=== PATIENT | female | born 1995 | race American Indian/Alaskan Native ===

== ENCOUNTER 2017-11-02 09:51 | Emergency (ER) | payer SELFPAY ==
[2017-11-02 10:00] VITALS: BP 123/85
[2017-11-02 10:29] LABS: Bacteria,Urine 1+ /HPF (Negative); Bilirubin,Urine NEG (Negative); Blood,Urine SM (Negative); Ketones,Urine NEG (Negative); Leukocyte Esterase,Urine MOD (Negative); Mucus,Urine FEW /HPF; Nitrite,Urine NEG (Negative); Urobilinogen,Urine < 2.0 mg/dL (<2.0)
--- NOTE | 2017-11-02 11:33 | Emergency Department Report ---
Chief Complaint: Urogenital-Female Stated Complaint: PAINFUL URINATIONS Time Seen by Provider: 11/02/17 11:24 - HPI History of Present Illness: Patient is a 22-year-old Female who is presenting with dysuria for the past 2 weeks. Patient states that his been relatively minor however for most of the duration of the illness however has increased in severity. Patient denies any fever nausea vomiting diarrhea or vaginal bleeding or vaginal discharge at this time - Exam Vital Signs: Vital Signs 11/02/17 09:56 Temperature 98.5 F Pulse Rate 98 H Respiratory 20 Rate Blood Pressure 123/85 O2 Sat by Pulse 98 Oximetry MSE screening note: Focused history and physical exam performed. Due to findings the following was ordered: Urinalysis and tests have been ordered and will be followed up by Dr. Mrs. Vieira ED Disposition for MSE Condition: Stable Referrals: AYAH HEBERT MD [Primary Care Provider] - 3-5 Days
--- NOTE | 2017-11-02 11:42 | Emergency Department Report ---
HPI - General Chief Complaint: Urogenital-Female Time Seen by Provider: 11/02/17 11:24 - HPI HPI: This 22-year-old female previously screened by attending Dr. Giron, see HPI in MSE note. She has no other complaints ED Past Medical Hx - Past Medical History Previous Medical History?: Yes Hx Psychiatric Treatment: Yes (depression, suicidal thought) - Surgical History Past Surgical History?: Yes Additional Surgical History: Tonsillectomy - Social History Smoking Status: Never Smoker Substance Use Type: None - Medications Home Medications: Home Medications Medication Instructions Recorded Confirmed Last Taken Type Ciprofloxacin HCl [Ciprofloxacin 500 mg PO Q12H #14 tab 11/02/17 Unknown Rx TAB] Phenazopyridine [Pyridium] 200 mg PO BID #6 tab 11/02/17 Unknown Rx ED Review of Systems ROS: Stated complaint: PAINFUL URINATIONS Other details as noted in HPI Constitutional: denies: chills, fever Eyes: denies: eye pain, eye discharge, vision change ENT: denies: ear pain, throat pain Respiratory: denies: cough, shortness of breath, wheezing Cardiovascular: denies: chest pain, palpitations Endocrine: no symptoms reported Gastrointestinal: denies: abdominal pain, nausea, diarrhea Genitourinary: dysuria, frequency. denies: urgency, hematuria, discharge Musculoskeletal: denies: back pain, joint swelling, arthralgia Skin: denies: rash, lesions Neurological: denies: headache, weakness, paresthesias Psychiatric: denies: anxiety, depression Hematological/Lymphatic: denies: easy bleeding, easy bruising Physical Exam - Physical Exam Vital Signs: Vital Signs 11/02/17 09:56 Temperature 98.5 F Pulse Rate 98 H Respiratory 20 Rate Blood Pressure 123/85 O2 Sat by Pulse 98 Oximetry Physical Exam: GENERAL: Alert and oriented x3, no apparent distress, Normal Gait, atraumatic. LUNGS: Symetrical with respiration, No wheezing, no rales or crackles, CTAB. HEART: S1, S2 present, regular rate and rhythm without murmur, no rubs, no gallops. Non tender to palpation ABDOMEN: No organomegaly was noted,Positive bowel sounds, soft, and non- distended. . Nontender to palpation on all Quadrants, NO CVA tenderness. BACK: Full range of motion, no spinal tenderness, nontender to palpation. SKIN: Warm and dry, No lesions, No ulceration or induration present. ED Course Vital Signs 11/02/17 09:56 Temperature 98.5 F Pulse Rate 98 H Respiratory 20 Rate Blood Pressure 123/85 O2 Sat by Pulse 98 Oximetry ED Medical Decision Making - Medical Decision Making She presents with dysuria Urinalysis positive for bacteria, elevated white blood count, test negative I discussed this findings with the patient. I discussed patient to take medication as prescribed and follow up with her primary care physician. I discussed with patient if symptoms worsen to return to ED. Sounds are normal patient is in acute distress. Critical care attestation.: If time is entered above; I have spent that time in minutes in the direct care of this critically ill patient, excluding procedure time. ED Disposition Clinical Impression: Dysuria UTI (urinary tract infection) Qualifiers: Urinary tract infection type: acute cystitis Hematuria presence: with hematuria Qualified Code(s): N30.01 - Acute cystitis with hematuria Disposition: TO HOME OR SELFCARE Is pt being admited?: No Does the pt Need Aspirin: No Condition: Stable Instructions: Dysuria (ED), Urinary Tract Infection in Women (ED) Additional Instructions: Make sure to follow up with the primary care physician as discussed. Take all your medications as you've been prescribed. If you have any worsening symptoms or develop new symptoms please return to ED immediately. Prescriptions: Ciprofloxacin HCl [Ciprofloxacin TAB] 500 mg PO Q12H #14 tab Phenazopyridine [Pyridium] 200 mg PO BID #6 tab Referrals: AYAH HEBERT MD [Primary Care Provider] - 3-5 Days STANISLAW SCHAFER MD [Referring] - 3-5 Days Forms: Accompanied Note, Work/School Release Form(ED) Time of Disposition: 11:48
== END 2017-11-02 12:20 | disposition home or self-care (01) ==
LOC: ED 09:51
DX: N30.01 Acute cystitis with hematuria (principal); F32.9 Major depressive disorder, single episode, unspecified; Z90.89 Acquired absence of other organs
CPT/HCPCS: 81001; 81025; 99283